=== PATIENT | male | born 1970 | race Caucasian/White ===

== ENCOUNTER 2017-02-10 22:59 | Emergency (ER) | payer MEDICARE ==
[~2017-02-10] VITALS: Ht 177.8 cm; Wt 67.8 kg
[2017-02-10 23:16] VITALS: BP 125/76; PULSE 53; RESP 18; TEMP 98.1; O2SAT 98
--- NOTE | 2017-02-10 23:32 | PD ---
HPI Chief Complaint: Rash Time Seen by Provider: 23:26 Travel History International Travel<30 days: No Contact w/Intl Traveler<30days: No History of Present Illness HPI 46yo M with no PMH presents to the ED with c/o rash in his abdomen for 1 day. Said he noticed it today and it is itchy. Denies any new medications, lotions or laundry detergents. Denies any fever, throat pain, chest pain, sob, n/v, abdominal pain, focal weakness or numbness. Pt did not take anything for this. PFSH Social History Tobacco Use: No Allergies-Medications (Allergen,Severity, Reaction): Coded Allergies: No Known Allergies (Unverified , 02/10/17) Reported Meds & Prescriptions Reported Meds & Active Scripts Active Ala-Dennys Topical (Hydrocortisone (Topical)) 1% Cream 1 Applic TOPICAL DIRECTED Review of Systems Except as stated in HPI: all other systems reviewed are Neg Physical Exam Narrative GENERAL: 46yo M not in distress. SKIN: Mild erythematous papules around umbilicus. No fluctuance. No hot to touch. HEAD: Atraumatic. Normocephalic. EYES: Pupils equal and round. No scleral icterus. No injection or drainage. ENT: Throat: Clear. Nonerythematous. Uvula midline. No mucosal involvement in mouth. NECK: Trachea midline. No JVD. CARDIOVASCULAR: Regular rate and rhythm. No murmur appreciated. RESPIRATORY: No accessory muscle use. Clear to auscultation. Breath sounds equal bilaterally. GASTROINTESTINAL: Abdomen soft, non-tender, nondistended. No rebound tenderness or guarding. MUSCULOSKELETAL: No obvious deformities. No clubbing. No cyanosis. No edema. NEUROLOGICAL: Awake and alert. No obvious cranial nerve deficits. Motor grossly within normal limits. Normal speech. Data Data Last Documented VS Vital Signs Date Time Temp Pulse Resp B/P (MAP) Pulse Ox O2 Delivery O2 Flow Rate FiO2 02/11/17 00:32 71 18 113/66 (82) 98 02/10/17 23:16 98.1 Orders Orders Diphenhydramine (Benadryl) (02/10/17 23:45) Ed Discharge Order (02/10/17 23:59) MDM Medical Decision Making Medical Screen Exam Complete: Yes Emergency Medical Condition: Yes Differential Diagnosis Atopic dermatitis vs. contact dermatitis vs. eczema vs. psoriasis Narrative Course 46yo well appearing male here with complaint of a rash in his abdomen that he noticed today. It is itchy and not painful. Appears like atopic dermatitis, will give diphenhydramine for itching now and prescribe hydrocortisone topical ointment. Pt to follow up with primary care physician as outpatient. Itching has improved after diphenhydramine. Return precautions given. Diagnosis Primary Impression: Atopic dermatitis Qualified Codes: L20.9 - Atopic dermatitis, unspecified Patient Instructions: General Instructions Departure Forms: Tests/Procedures Additional Instructions: Please follow up with your primary care physician in 3-7 days. Return to the ED if symptoms worsen. Med/Other Pt SpecificInfo: Prescription(s) given Scripts Hydrocortisone (Topical) (Ala-Dennys Topical) 1% Cream 1 APPLIC TOPICAL DIRECTED for Inflammation, #1 TUBE 0 Refills Prov: Bell Camacho DO 02/10/17 Disposition: 01 DISCHARGE HOME Condition: Stable Bell Camacho DO Feb 10, 2017 23:32
[2017-02-10] MEDS ORDERED: ALA1CRE2 TOPICAL (23:36)
[2017-02-10] MEDS ORDERED: diphenhydrAMINE HCL 50 MG CAP PO ONE (23:45)
[2017-02-11 00:32] VITALS: BP 113/66
== END 2017-02-11 00:34 | disposition home or self-care (01) ==
LOC: PHED 22:59
DX: L20.9 Atopic dermatitis, unspecified (principal)
CPT/HCPCS: 99282; Q0163

== ENCOUNTER 2017-03-16 19:57 | Emergency (ER) | payer MEDICARE ==
[~2017-03-16 19:57] MED LIST: ALA1CRE2 TOPICAL
[2017-03-16 20:07] VITALS: BP 113/70; PULSE 70; RESP 20; TEMP 98.1
[2017-03-16] MEDS ORDERED: PERM5CRE TOPICAL (21:21)
[2017-03-16] MEDS ORDERED: PRED10PA PO (21:21)
--- NOTE | 2017-03-16 21:21 | PD ---
HPI Chief Complaint: Skin Problem Time Seen by Provider: 21:08 Travel History International Travel<30 days: No Contact w/Intl Traveler<30days: No Traveled to known affect area: No History of Present Illness HPI This is a 46-year-old male who presents to the emergency department with 2 months of an itchy rash that started on his abdomen and has spread to his arms legs and back, constant, moderate severity with no associated shortness of breath or fevers. There was a nephew and the family that had scabies but he wasn't in the house. No one else in the family has a rash. He doesn't know of any new exposures to detergents or soaps. He was treated in January with hydrocortisone cream but it's not helping. PFSH Past Medical History Medical History: Denies Significant Hx Diminished Hearing: No ?: Not Past Surgical History Surgical History: No Previous Surgery Oral Surgery: Yes (Teeth removed) Social History Alcohol Use: Yes (Occ) Tobacco Use: No Substance Use: No Allergies-Medications (Allergen,Severity, Reaction): Coded Allergies: No Known Allergies (Verified Adverse Reaction, Unknown, 03/16/17) Reported Meds & Prescriptions Reported Meds & Active Scripts Active Review of Systems General / Constitutional: No: Fever, Chills Cardiovascular: No: Chest Pain or Discomfort Physical Exam Narrative GENERAL: Well-appearing, no acute distress, nontoxic SKIN: Papular excoriated rash over the abdomen, upper and lower extremities with no involvement of the web spaces and no obvious burrows HEAD: Atraumatic. Normocephalic. ENT: No nasal bleeding or discharge. Moist mucous membranes MUSCULOSKELETAL: No obvious deformities. No clubbing. No cyanosis. No edema. NEUROLOGICAL: Awake and alert. No obvious cranial nerve deficits. Motor grossly within normal limits. Normal speech. PSYCHIATRIC: Appropriate mood and affect; insight and judgment normal. Data Data Last Documented VS Vital Signs Date Time Temp Pulse Resp B/P (MAP) Pulse Ox O2 Delivery O2 Flow Rate FiO2 03/16/17 20:07 98.1 70 20 113/70 (84) [facility] Medical Decision Making Medical Screen Exam Complete: Yes Emergency Medical Condition: Yes Differential Diagnosis Scabies, contact dermatitis, atopic dermatitis Narrative Course This is a 46-year-old male who presents to the emergency department with a rash this been going on for 2 months. Family is concerned it may be scabies as there is another family member that was treated for scabies. Doesn't appear classic for scabies but I think it's reasonable given the duration of symptoms to do a course of treatment. I also think the patient would benefit from prednisone as I think it's more likely a contact dermatitis. Patient will be discharged with permethrin and prednisone. He was advised to take Benadryl for itching. Diagnosis Primary Impression: Rash Patient Instructions: General Instructions Additional Instructions: If you develop swelling of the throat or coughing a lot, wheezing or trouble breathing, throwing up or having diarrhea, feeling dizzy or passing out, or spreading of your rash return to the emergency room immediately as you may be having a life threatening allergic reaction. Complete your course of steroids and take benadryl every 4 hours for the next 48 hours and then as needed for itching or other symptoms. Med/Other Pt SpecificInfo: Prescription(s) given Scripts Permethrin Topical 5% (Permethrin Topical 5%) 5% Cream 1 APPLIC TOPICAL ONCE for Scabies, #1 TUBE 0 Refills Prov: Shanice Schwarz MD 03/16/17 Prednisone (21) 10 mg tab Dose Pack (Prednisone (21) 10 mg tab Dose Pack) 10 Mg Pack 10 MG PO DIRECTED for Inflammation, #1 DSPK 0 Refills Prov: Shanice Schwarz MD 03/16/17 Disposition: 01 DISCHARGE HOME Condition: Stable Shanice Schwarz MD Mar 16, 2017 21:21
[2017-03-16 21:22] VITALS: BP 115/70; TEMP 98.1
== END 2017-03-16 21:31 | disposition home or self-care (01) ==
LOC: PHED 19:57
DX: R21 Rash and other nonspecific skin eruption (principal); L29.9 Pruritus, unspecified
CPT/HCPCS: 99284

== ENCOUNTER 2017-09-21 15:14 | Emergency (ER) | payer MEDICARE ==
[~2017-09-21] VITALS: Ht 180.3 cm; Wt 67.0 kg
[~2017-09-21 15:14] MED LIST changes: -ALA1CRE2 TOPICAL; +PERM5CRE TOPICAL; +PRED10PA PO
[2017-09-21 15:16] VITALS: BP 122/59; PULSE 62; RESP 16; TEMP 98.1; O2SAT 98
[2017-09-21] MEDS ORDERED: antidepressant PO (15:30)
[2017-09-21] MEDS ORDERED: DIAZEPAM 5 MG TAB PO ONE (15:45)
[2017-09-21] MEDS ORDERED: KETOROLAC TROMETHAMINE 60 MG/2 ML (IM) VIAL IM ONE (15:45)
--- NOTE | 2017-09-21 15:51 | PD ---
HPI Chief Complaint: Back/ Neck Pain or Injury Time Seen by Provider: 15:30 Travel History International Travel<30 days: No Contact w/Intl Traveler<30days: No Traveled to known affect area: No History of Present Illness HPI 46-year-old male here with low back pain after lifting a scooter 1 hour prior to arrival. He reports he developed immediate pain in the low back after lifting the vehicle. He denies altered sensation or weakness in lower extremities. No incontinence. Pain is worse with flexion and twisting of the torso. Slightly relieved with rest. Symptom severity is moderate. PFSH Past Medical History Depression: Yes Diminished Hearing: No Immunizations Current: Yes Tetanus Vaccination: Unknown Influenza Vaccination: Yes Past Surgical History Oral Surgery: Yes (Teeth removed) Social History Alcohol Use: Yes (Occ) Tobacco Use: No Substance Use: No Allergies-Medications (Allergen,Severity, Reaction): Coded Allergies: No Known Allergies (Verified Adverse Reaction, Unknown, 09/21/17) Reported Meds & Prescriptions Reported Meds & Active Scripts Active Robaxin (Methocarbamol) 750 Mg Tab 750 Mg PO QID Ibuprofen 800 Mg Tab 800 Mg PO Q6HR PRN Reported [antidepressant] 1 Tab PO DAILY Review of Systems Except as stated in HPI: all other systems reviewed are Neg General / Constitutional: No: Fever Eyes: No: Visual changes HENT: No: Headaches Cardiovascular: No: Chest Pain or Discomfort Respiratory: No: Shortness of Breath Gastrointestinal: No: Abdominal Pain Genitourinary: No: Dysuria Physical Exam Narrative GENERAL: Alert and well-appearing 46-year-old male SKIN: Warm and dry. HEAD: Normocephalic. EYES:No injection or drainage. NECK: Supple, trachea midline. CARDIOVASCULAR: Regular rate and rhythm without murmurs, gallops, or rubs. RESPIRATORY: Breath sounds equal bilaterally. No accessory muscle use. GASTROINTESTINAL: Abdomen soft, non-tender, nondistended. MUSCULOSKELETAL: No cyanosis, or edema. Normal strength and sensation in the lower extremities. 2+ DTRs BACK: +TTP lumbar spine and paravertebral musculature. No step-off deformity. No CVA tenderness. Data Data Last Documented VS Vital Signs Date Time Temp Pulse Resp B/P (MAP) Pulse Ox O2 Delivery O2 Flow Rate FiO2 09/21/17 15:16 98.1 62 16 122/59 (80) 98 Orders Orders Ketorolac Inj (Toradol Inj) (09/21/17 15:45) Diazepam (Valium) (09/21/17 15:45) Spine, Lumbar Comp W/Obliq (09/21/17 ) MDM Medical Decision Making Medical Screen Exam Complete: Yes Emergency Medical Condition: Yes Differential Diagnosis Lumbar strain, fracture, herniated disc Narrative Course 46-year-old male here with low back pain. He has a normal neurologic exam. He was given Toradol and Valium and reports symptom improvement. X-ray is negative for fracture. Diagnosis Primary Impression: Lumbar strain Qualified Codes: S39.012A - Strain of muscle, fascia and tendon of lower back , initial encounter Referrals: Primary Care Physician Additional Instructions: Medication as directed. Alternate ice and/or heat. Light stretching. Follow-up with your primary doctor. Scripts Methocarbamol (Robaxin) 750 Mg Tab 750 MG PO QID for Muscle Spasm, #12 TAB 0 Refills Prov: Marcela Pineda 09/21/17 Ibuprofen (Ibuprofen) 800 Mg Tab 800 MG PO Q6HR Y for PAIN, #40 TAB 0 Refills Prov: Marcela Pineda 09/21/17 Disposition: 01 DISCHARGE HOME Condition: Stable Marcela Pineda Sep 21, 2017 15:51
--- NOTE | 2017-09-21 16:06 | RADRPT ---
EXAM DATE: 09/21/2017 3:48 PM EDT AGE/SEX: 46 years / Male INDICATIONS: Lower back pain after lifting a scooter today. CLINICAL DATA: This is the patient's initial encounter. Patient reports that signs and symptoms have been present for 1 day and indicates a pain score of 7/10. MEDICAL/SURGICAL HISTORY: None. None. COMPARISON: No prior [facility] exams available for comparison. FINDINGS: There is minimal left convex lumbar scoliosis. No evidence of spondylolisthesis. There is no evidence of fracture. No destructive changes. There is disc space narrowing most notably at the L3-4 interspa ce and ventral endplate osteophytes in the lower lumbar spine. The oblique views reveal satisfactory alignment of the posterior facet joints. CONCLUSION: Mild degenerative changes. No acute bony findings. Electronically signed by: Carlos Glass MD 09/21/2017 4:04 PM EDT
[2017-09-21] MEDS ORDERED: ROBA750T PO (16:30)
[2017-09-21] MEDS ORDERED: IBUP1TAB7 PO (16:30)
== END 2017-09-21 16:38 | disposition home or self-care (01) ==
LOC: PHEFT 15:14
DX: S39.012A Strain of muscle, fascia and tendon of lower back, initial encounter (principal); X50.0XXA Overexertion from strenuous movement or load, initial encounter; F32.9 Major depressive disorder, single episode, unspecified
CPT/HCPCS: 72110; 96372; 99283; J1885